=== PATIENT | female | born 1990 | race Caucasian/White ===

== ENCOUNTER 2021-01-19 20:13 | Emergency (ER) | payer SELFPAY ==
[2021-01-19 20:53] LABS: BILIRUBIN NEGATIVE (NEGATIVE); BLOOD NEGATIVE Ery/uL (NEGATIVE); CLARITY CLEAR (CLEAR); COLOR YELLOW (YELLOW); GLUCOSE (U) NORMAL (NORMAL); LEUKOCYTES NEGATIVE Leu/uL (NEGATIVE); NITRITE NEGATIVE (NEGATIVE); PROTEIN NEGATIVE (NEGATIVE); SPECIFIC GRAVITY 1.025 (1.001-1.030); UROBILINOGEN 0.2 mg/dL (0.2-1.0)
[2021-01-19 21:41] LABS: BASOPHIL 0.2 % (0-2); EOSINOPHIL 3.7 % (0-5); HCT 38.1 % (37.0-47.0); HGB 12.1 g/dl (12.5-16.0); LYMPHOCYTE 13.8 % (15-48); MCH 28.3 pg (25.0-31.0); MCHC 31.8 g/dL (32.0-36.0); MONOCYTE 5.7 % (0-12); MPV 10.9 fL (6.0-9.5); NEUTROPHIL 75.9 % (41-80); NRBC 0; PLT 271 K/uL (150-400); RBC 4.28 M/uL (4.20-5.40); RDW 14.6 % (11.5-14.0); WBC 12.3 K/uL (4.0-10.5)
[2021-01-19 21:56] LABS: ALBUMIN 3.4 g/dL (3.4-5.0); ALKALINE PHOSHATASE 130 U/L (46-116); ALT 82 U/L (14-59); AST 54 U/L (15-37); BILIRUBIN - DIRECT <0.05 mg/dL (0.00-0.20); BILIRUBIN - TOTAL 0.3 mg/dL (0.2-1.0); BUN 10 mg/dL (7-18); BUN/CREAT RATIO (CALC) 11.9 RATIO; CHLORIDE 103 mmol/L (98-107); CO2 (BICARBONATE) 26 mmol/L (21-32); CREATININE 0.84 mg/dL (0.51-0.95); GLOBULIN (CALCULATION) 4.2 g/dL; GLUCOSE 112 mg/dL (74-106); LIPASE 152 U/L (73-393); POTASSIUM 3.5 mmol/L (3.5-5.1); TOTAL PROTEIN 7.6 g/dL (6.4-8.2)
[2021-01-20] MEDS ORDERED: PERCOCET 5-3251 EACH PO ×3 (00:42→01:00)
== END 2021-01-20 01:25 | disposition home or self-care (01) ==
LOC: FER 20:13
PROVIDERS: Student in an Organized Health Care Education/Training Program
DX: D25.9 Leiomyoma of uterus, unspecified (principal); N83.8 Other noninflammatory disorders of ovary, fallopian tube and broad ligament; R19.09 Other intra-abdominal and pelvic swelling, mass and lump
CPT/HCPCS: 36415; 76830; 80048; 80076; 81003; 83690; 85025; 86140; Q9967